=== PATIENT | female | born 1995 | race Caucasian/White ===

== ENCOUNTER 2020-08-30 18:28 | Emergency (ER) | payer OTHER ==
[~2020-08-30 18:28] MED LIST: PREDNISONE20 MG PO
[2020-08-30 19:26] LABS: HEMOGLOBIN 13.6 gm/dl (12.3-15.3); RED BLOOD COUNT 4.05 M/UL (4.00-5.10); WHITE BLOOD COUNT 9.5 K/UL (4.5-11.0)
[2020-08-30 19:54] LABS: BUN/CREATININE RATIO 13 (0-10)
== END 2020-08-30 21:00 | disposition home or self-care (01) ==
LOC: ER1 18:28
PROVIDERS: Family Medicine
DX: O99.891 Other specified diseases and conditions complicating pregnancy (principal); R07.9 Chest pain, unspecified; O99.282 Endocrine, nutritional and metabolic diseases complicating pregnancy, second trimester; E87.6 Hypokalemia; Z91.041 Radiographic dye allergy status; Z79.899 Other long term (current) drug therapy
CPT/HCPCS: 80053; 82550; 82553; 83874; 84484; 85025; 85379; 93005; 99285

== ENCOUNTER 2020-11-21 10:35 | Emergency (ER) | payer OTHER ==
[2020-11-21 11:40] LABS: RED BLOOD COUNT 3.91 M/UL (4.00-5.10); WHITE BLOOD COUNT 9.7 K/UL (4.5-11.0)
[2020-11-21 11:57] LABS: BUN/CREATININE RATIO 10 (0-10)
[2020-11-21] MEDS ORDERED: MACROBID 100 M100 MG PO (13:16)
[2020-11-21] MEDS ORDERED: MONISTAT 744 GM VG (13:16)
== END 2020-11-21 14:24 | disposition home or self-care (01) ==
LOC: ER1 10:35
PROVIDERS: Family Medicine
DX: O99.891 Other specified diseases and conditions complicating pregnancy (principal); R00.0 Tachycardia, unspecified; O23.43 Unspecified infection of urinary tract in pregnancy, third trimester; Z91.041 Radiographic dye allergy status; Z3A.30 30 weeks gestation of pregnancy; Z20.822 Contact with and (suspected) exposure to COVID-19
CPT/HCPCS: 0240U; 80053; 81001; 83605; 83690; 85025; 85610; 93005; 93970; 99285

== ENCOUNTER → 2020-11-23 | Outpatient (CLI) | payer BC, OTHER ==
[~2020-11-23] MED LIST changes: +MACROBID 100 M100 MG PO; +MONISTAT 744 GM VG
== END ==
LOC: RAD 13:43
DX: O99.513 Diseases of the respiratory system complicating pregnancy, third trimester (principal); R05 Cough; R06.02 Shortness of breath; Z3A.30 30 weeks gestation of pregnancy
CPT/HCPCS: 71046

== ENCOUNTER → 2020-12-09 | Outpatient (CLI) | payer BC ==
[~2020-12-09] MED LIST changes: +DOCUSATE SODIU100 MG PO; +IBUPROFEN600 MG PO; +LOPRESSOR 25 MG25 MG PO; +PRENATAL VITAM1 EAC3 PO; +SYNTHROID25 MCG PO
[2020-12-09 13:10] LABS: HEMOGLOBIN 12.4 gm/dl (12.3-15.3); RED BLOOD COUNT 3.62 M/UL (4.00-5.10); WHITE BLOOD COUNT 9.9 K/UL (4.5-11.0)
[2020-12-09 13:31] LABS: BUN/CREATININE RATIO 11 (0-10)
[2020-12-12 15:12] LABS: THYROGLOBULIN ANTIBODY <1.0 IU/mL (0.0-0.9); THYROID PEROXIDASE (TPO) AB 11 IU/mL (0-34)
== END ==
LOC: LAB 12:25
PROVIDERS: Nurse Practitioner Family
DX: E06.3 Autoimmune thyroiditis (principal); R53.83 Other fatigue; R53.81 Other malaise
CPT/HCPCS: 36415; 80053; 84443; 85027; 86376; 86800

== ENCOUNTER 2020-12-23 11:05 | Outpatient (CLI) | payer BC ==
[~2020-12-23 11:05] MED LIST changes: -DOCUSATE SODIU100 MG PO; -IBUPROFEN600 MG PO; -LOPRESSOR 25 MG25 MG PO; -PRENATAL VITAM1 EAC3 PO; -SYNTHROID25 MCG PO
== END 2020-12-23 12:39 | disposition home or self-care (01) ==
LOC: GENOP 11:05
DX: O36.8130 Decreased fetal movements, third trimester, not applicable or unspecified (principal); O99.283 Endocrine, nutritional and metabolic diseases complicating pregnancy, third trimester; E03.9 Hypothyroidism, unspecified; E06.3 Autoimmune thyroiditis; O99.343 Other mental disorders complicating pregnancy, third trimester; F41.9 Anxiety disorder, unspecified; O99.353 Diseases of the nervous system complicating pregnancy, third trimester; G43.909 Migraine, unspecified, not intractable, without status migrainosus; Z91.040 Latex allergy status; Z91.041 Radiographic dye allergy status; Z79.899 Other long term (current) drug therapy; Z3A.34 34 weeks gestation of pregnancy
CPT/HCPCS: 59025

== ENCOUNTER 2020-12-28 15:36 | Outpatient (CLI) | payer BC ==
[~2020-12-28] VITALS: Ht 170.2 cm; Wt 122.5 kg
== END 2020-12-28 17:20 | disposition home or self-care (01) ==
LOC: GENOP 15:36
DX: O47.03 False labor before 37 completed weeks of gestation, third trimester (principal); O99.283 Endocrine, nutritional and metabolic diseases complicating pregnancy, third trimester; E06.3 Autoimmune thyroiditis; O99.353 Diseases of the nervous system complicating pregnancy, third trimester; G43.909 Migraine, unspecified, not intractable, without status migrainosus; Z3A.35 35 weeks gestation of pregnancy; Z79.899 Other long term (current) drug therapy
CPT/HCPCS: 81001; 96372; J0696

== ENCOUNTER 2021-01-14 13:01 | Outpatient (CLI) | payer BC | END 2021-01-14 16:03 | disposition home or self-care (01) | LOC: GENOP 13:01 | DX: O47.1 False labor at or after 37 completed weeks of gestation (principal); Z3A.37 37 weeks gestation of pregnancy | CPT/HCPCS: G0463 ==

== ENCOUNTER 2021-01-18 16:58 | Inpatient (IN) | payer BC ==
[~2021-01-18] VITALS: Ht 170.2 cm; Wt 123.8 kg
[2021-01-18 17:49] LABS: HEMOGLOBIN 12.9 gm/dl (12.3-15.3); RED BLOOD COUNT 3.73 M/UL (4.00-5.10); WHITE BLOOD COUNT 9.5 K/UL (4.5-11.0)
[2021-01-18] MEDS ORDERED: SYNTHROID25 MCG PO (18:39)
[2021-01-18] MEDS ORDERED: PRENATAL VITAM1 EAC3 PO (18:39)
[2021-01-18] MEDS ORDERED: LOPRESSOR 25 MG25 MG PO (18:42)
[2021-01-19] MEDS ORDERED: IBUPROFEN600 MG PO (21:59)
[2021-01-19] MEDS ORDERED: DOCUSATE SODIU100 MG PO (21:59)
[2021-01-20 07:04] LABS: HEMOGLOBIN 12.5 gm/dl (12.3-15.3)
== END 2021-01-21 16:46 | disposition home or self-care (01) | DRG 807 ==
LOC: GENOP 16:58 → OB 17:17
PROVIDERS: Obstetrics & Gynecology; ADMIT Obstetrics & Gynecology
PROC: 10E0XZZ Delivery of Products of Conception, External Approach (ICD-10-PCS; principal; 2021-01-18)
PROC: 0HQ9XZZ Repair Perineum Skin, External Approach (ICD-10-PCS; 2021-01-18)
PROC: 10907ZC Drainage of Amniotic Fluid, Therapeutic from Products of Conception, Via Natural or Artificial Opening (ICD-10-PCS; 2021-01-18)
DX: O13.4 Gestational [pregnancy-induced] hypertension without significant proteinuria, complicating childbirth (principal); Z37.0 Single live birth; Z3A.38 38 weeks gestation of pregnancy; Z20.822 Contact with and (suspected) exposure to COVID-19; O70.0 First degree perineal laceration during delivery; Z83.3 Family history of diabetes mellitus; Z82.49 Family history of ischemic heart disease and other diseases of the circulatory system; Z88.8 Allergy status to other drugs, medicaments and biological substances; Z91.040 Latex allergy status
CPT/HCPCS: 51702; 81001; 82800; 85014; 85018; 85025; 90471; 90715; J0595; J2405; J2795; J3010; J7120; U0003

== ENCOUNTER 2021-08-31 01:41 | Emergency (ER) | payer SELFPAY ==
[~2021-08-31 01:41] MED LIST changes: +DOCUSATE SODIU100 MG PO; +IBUPROFEN600 MG PO; +LOPRESSOR 25 MG25 MG PO; +PRENATAL VITAM1 EAC3 PO; +SYNTHROID25 MCG PO
[2021-08-31 02:30] LABS: HEMOGLOBIN 14.3 gm/dl (12.3-15.3); RED BLOOD COUNT 4.37 M/UL (4.00-5.10); WHITE BLOOD COUNT 9.7 K/UL (4.5-11.0)
[2021-08-31 02:52] LABS: BUN/CREATININE RATIO 14 (0-10)
[2021-08-31] MEDS ORDERED: PERCOCET 5-3251 EACH PO (04:50)
[2021-08-31] MEDS ORDERED: ZOFRAN ODT 4 MG4 MG GT (04:50)
== END 2021-08-31 05:00 | disposition home or self-care (01) ==
LOC: ER1 01:41
PROVIDERS: Family Medicine
DX: N13.2 Hydronephrosis with renal and ureteral calculous obstruction (principal)
CPT/HCPCS: 80053; 81001; 83690; 85025; 99284; J1885; J2270; J2405

== ENCOUNTER → 2021-11-02 | Outpatient (CLI) | payer OTHER ==
[~2021-11-02] MED LIST changes: +PERCOCET 5-3251 EACH PO; +ZOFRAN ODT 4 MG4 MG GT
[2021-11-02 15:49] LABS: RED BLOOD COUNT 4.16 M/UL (4.00-5.10); WHITE BLOOD COUNT 7.6 K/UL (4.5-11.0)
[2021-11-03 22:07] LABS: THYROGLOBULIN ANTIBODY <1.0 IU/mL (0.0-0.9); THYROID PEROXIDASE (TPO) AB 16 IU/mL (0-34)
== END ==
LOC: LAB 15:04
PROVIDERS: Nurse Practitioner Family
DX: E03.9 Hypothyroidism, unspecified (principal); R53.83 Other fatigue; E06.3 Autoimmune thyroiditis; R94.6 Abnormal results of thyroid function studies
CPT/HCPCS: 36415; 84439; 84443; 85027; 86376; 86800

== ENCOUNTER 2021-11-21 18:50 | Emergency (ER) | payer OTHER ==
[2021-11-21] MEDS ORDERED: AMOX TR-K CLV1 EAC4 PO (20:12)
== END 2021-11-21 23:30 | disposition short-term general hospital (02) ==
LOC: ER1 18:50
DX: T81.49XA Infection following a procedure, other surgical site, initial encounter (principal); Z90.89 Acquired absence of other organs; R00.0 Tachycardia, unspecified; Z20.822 Contact with and (suspected) exposure to COVID-19
CPT/HCPCS: 87070; 87205; 99284; U0002

== ENCOUNTER → 2022-02-12 | Outpatient (CLI) | payer OTHER ==
[~2022-02-12] MED LIST changes: +AMOX TR-K CLV1 EAC4 PO
== END ==
LOC: LAB 11:47
DX: E89.0 Postprocedural hypothyroidism (principal); C73 Malignant neoplasm of thyroid gland
CPT/HCPCS: 36415; 84443